=== PATIENT | female | born 1950 | race Caucasian/White ===

== ENCOUNTER 2017-02-28 09:46 | Emergency (ER) | payer BC ==
[~2017-02-28] VITALS: Ht 160 cm; Wt 82.0 kg
[2017-02-28 10:12] VITALS: BP 178/98; PULSE 70; RESP 18; TEMP 97.9; O2SAT 98
[2017-02-28] MEDS ORDERED: LEVO100T5 PO (10:30)
[2017-02-28] MEDS ORDERED: METF500T PO (10:30)
[2017-02-28] MEDS ORDERED: LISI10TA3 PO (10:30)
--- NOTE | 2017-02-28 10:54 | RADRPT ---
EXAM DATE/TIME: 02/28/2017 10:28 [facility] COMPARISON: No previous studies available for comparison. INDICATIONS : Trauma, fall today. Laceration to upper lip, hematoma to forehead. RADIATION DOSE: 56.77 CTDIvol (mGy) MEDICAL HISTORY : Hypertension. diabetes SURGICAL HISTORY : None. ENCOUNTER: Initial ACUITY: 1 day PAIN SCALE: 5/10 LOCATION: Bilateral head TECHNIQUE: Multiple contiguous axial images were obtained of the head. Using automated exposure control and adj ustment of the mA and/or kV according to patient size, radiation dose was kept as low as reasonably a chievable to obtain optimal diagnostic quality images. DICOM format image data is available electro nically for review and comparison. FINDINGS: CEREBRUM: The ventricles are normal for age. No evidence of midline shift, mass lesion, hemorrhage or acute in farction. No extra-axial fluid collections are seen. POSTERIOR FOSSA: The cerebellum and brainstem are intact. The 4th ventricle is midline. The cerebellopontine angle i s unremarkable. EXTRACRANIAL: The visualized portion of the orbits is intact. SKULL: The calvaria is intact. No evidence of skull fracture. CONCLUSION: 1. No acute intracranial abnormalities. Anterior scalp hematoma. Bunny Maher MD on February 28, 2017 at 10:51 Board Certified Radiologist. This report was verified electronically.
--- NOTE | 2017-02-28 10:56 | PD ---
HPI Chief Complaint: Fall Time Seen by Provider: 10:28 Travel History International Travel<30 days: No Contact w/Intl Traveler<30days: No Traveled to known affect area: No History of Present Illness HPI This is a 66-year-old female with history of fibromyalgia, diabetes, hypertension, hypothyroidism, who presents via EMS after she tripped and fell and struck her face on the cobblestones per patient states she was at the [employer] in [place] when she was walking across a street and went to step up on a curb and fell foot for striking her face on the ground. She reports a large amount of bleeding from her face on scene. She reports that she did not lose consciousness. She reports mild pain in her neck and face. She reports her last tetanus shot was within 10 years. She reports mild abrasion to her right knee area. There is no other injuries reported. PFSH Past Medical History Diabetes: Yes Patient Takes Glucophage: Yes Hypertension: Yes Medical other: Yes (fibromyalgia) Tetanus Vaccination: > 5 Years ?: Not Social History Alcohol Use: Yes (on rarely) Tobacco Use: No Substance Use: No Allergies-Medications (Allergen,Severity, Reaction): Coded Allergies: Penicillins (Verified Allergy, Unknown, 02/28/17) Reported Meds & Prescriptions Reported Meds & Active Scripts Active Hydrocodone-Acetaminophen 5-325 mg Tab 1 Tab PO Q6H PRN Reported Lisinopril 10 Mg Tab 10 Mg PO DAILY Metformin (Metformin HCl) 500 Mg Tab 500 Mg PO DAILY With a meal Levothyroxine (Levothyroxine Sodium) 100 Mcg Tab 100 Mcg PO DAILY Review of Systems Except as stated in HPI: all other systems reviewed are Neg General / Constitutional: No: Fever, Chills HENT: Positive: Congestion, Nosebleed, Neck Pain (slight posterior), Dental Difficulties (abraded gums), Other (pain to her face and forehead. Patient states she abraded her gums but does not feel any malocclusion or loose teeth.) Cardiovascular: No: Chest Pain or Discomfort, Palpitations Respiratory: No: Cough Gastrointestinal: Positive: Nausea (earlier, none now.), No: Vomiting Genitourinary: No: Incontinence Musculoskeletal: Positive: Other (abrasion to the right knee, full range of motion), No: Limited ROM, Weakness Skin: Positive Other (abraded right knee and base of nose) Neurologic: No: Weakness, Dizziness, Headache, Sensory Disturbance Physical Exam Narrative GENERAL: Well-developed well-nourished female in no obvious respiratory discomfort. Patient has c-collar in place and there are abrasions to the base of her nose as well as under her nose. SKIN: Focused skin assessment warm/dry. HEAD: Normocephalic. Slight abrasion to the forehead and face as above. EYES: Pupils equal and round. No scleral icterus. No injection or drainage. ENT: No nasal bleeding or discharge. Mucous membranes pink and moist. Swelling to the upper and lower in her mid lip. No lacerations. Patient has no fractured teeth. There is no malocclusion noted. NECK: Trachea midline. No JVD. CARDIOVASCULAR: Regular rate and rhythm. No murmur appreciated. RESPIRATORY: No accessory muscle use. Clear to auscultation. Breath sounds equal bilaterally. GASTROINTESTINAL: Abdomen soft, non-tender, nondistended. MUSCULOSKELETAL: No obvious deformities. No clubbing. No cyanosis. No edema. Slight abrasion to the right knee. No instability. NEUROLOGICAL: Awake and alert. No obvious cranial nerve deficits. Motor grossly within normal limits. Normal speech. Data Data Last Documented VS Vital Signs Date Time Temp Pulse Resp B/P (MAP) Pulse Ox O2 Delivery O2 Flow Rate FiO2 02/28/17 10:13 78 18 98 Room Air 02/28/17 10:12 97.9 178/98 (124) Orders Orders Ct Brain W/O Iv Contrast(Rout) (02/28/17 10:28) Ct Cerv Spine W/O Contrast (02/28/17 10:28) Ct Facial Bones W/O Iv Cont (02/28/17 10:28) [facility] Medical Decision Making Medical Screen Exam Complete: Yes Emergency Medical Condition: Yes Differential Diagnosis Nasal fracture versus contusion versus lip hematoma versus neck injury Narrative Course 66-year-old female who status post mechanical fall with facial contusions and abrasions. Patient also has forehead contusion. She reports neck pain. CT neck, facial bones, head are negative for acute process other than soft tissue swelling. She'll be discharged with with a prescription for Lortab fives. She is instructed to use bacitracin to keep the wounds moist and clean. She's instructed to return if she does any worsening symptoms i.e. change in mental status, dizziness, nausea vomiting, or any other reason the concerns her. Diagnosis Primary Impression: Facial contusion Additional Impressions: Forehead contusion Cervical strain status post mechanical fall Additional Instructions: Abrasions clean and dry. Return if feeling worse i.e., headache, not acting normal, dizziness, nausea vomiting, or any other reason that concerned her. Follow up with your primary care doctor early next week. Avoid alcohol and driving while taking pain medication. Med/Other Pt SpecificInfo: Prescription(s) given Scripts Hydrocodone-Acetaminophen (Hydrocodone-Acetaminophen) 5-325 mg Tab 1 TAB PO Q6H Y for PAIN, #15 TAB 0 Refills Prov: John Braun MD 02/28/17 Disposition: 01 DISCHARGE HOME Condition: Serious John Braun MD Feb 28, 2017 10:56
--- NOTE | 2017-02-28 11:14 | RADRPT ---
EXAM DATE/TIME: 02/28/2017 10:28 [facility] COMPARISON: No previous studies available for comparison. INDICATIONS : Trauma, fall today. Laceration to upper lip, hematoma to forehead. RADIATION DOSE: 26.35 CTDIvol (mGy) MEDICAL HISTORY : Hypertension. diabetes SURGICAL HISTORY : None. ENCOUNTER: Initial ACUITY: 1 day PAIN SCORE: 5/10 LOCATION: Bilateral face TECHNIQUE: Volumetric scanning of the facial bones was performed. Using automated exposure control and adjustme nt of the mA and/or kV according to patient size, radiation dose was kept as low as reasonably achiev able to obtain optimal diagnostic quality images. DICOM format image data is available electronicall y for review and comparison. FINDINGS: There is a frontal scalp hematoma. Visualized paranasal sinuses are clear. No acute fracture. CONCLUSION: 1. Frontal scalp hematoma. No acute bony abnormalities. Bunny Maher MD on February 28, 2017 at 11:02 Board Certified Radiologist. This report was verified electronically.
--- NOTE | 2017-02-28 11:20 | RADRPT ---
EXAM DATE/TIME: 02/28/2017 10:31 [facility] COMPARISON: No previous studies available for comparison. INDICATIONS : Trauma, fall today. Laceration to upper lip, hematoma to forehead. RADIATION DOSE: 21.83 CTDIvol (mGy) MEDICAL HISTORY : Hypertension. diabetes SURGICAL HISTORY : None. ENCOUNTER: Initial ACUITY: 1 day PAIN SCALE: 5/10 LOCATION: Bilateral neck TECHNIQUE: Volumetric scanning of the cervical spine was performed. Multiplanar reconstructions in the sagittal, coronal and oblique axial planes were performed. Using automated exposure control and adjustment o f the mA and/or kV according to patient size, radiation dose was kept as low as reasonably achievable to obtain optimal diagnostic quality images. DICOM format image data is available electronically f or review and comparison. FINDINGS: No acute fracture. There is mild AP canal stenosis at C4-5-6 with bilateral foraminal encroachment. N o prevertebral soft tissue swelling. Alignment within normal limits. CONCLUSION: 1. No acute fracture. Moderate to severe degenerative disc disease in the lower cervical spine with o steophytic ridging and mild AP canal stenosis. Bunny Maher MD on February 28, 2017 at 11:13 Board Certified Radiologist. This report was verified electronically.
[2017-02-28] MEDS ORDERED: HYDR-3516 PO (12:10)
== END 2017-02-28 13:20 | disposition home or self-care (01) ==
LOC: NEPC 09:46
DX: S00.83XA Contusion of other part of head, initial encounter (principal); S16.1XXA Strain of muscle, fascia and tendon at neck level, initial encounter; S80.211A Abrasion, right knee, initial encounter; E11.9 Type 2 diabetes mellitus without complications; I10 Essential (primary) hypertension; M79.7 Fibromyalgia; W01.0XXA Fall on same level from slipping, tripping and stumbling without subsequent striking against object, initial encounter; Z79.899 Other long term (current) drug therapy; Z88.0 Allergy status to penicillin
CPT/HCPCS: 70450; 70486; 72125; 99284